=== PATIENT | female | born 1985 | race Caucasian/White ===

== ENCOUNTER 2018-03-30 17:23 | Inpatient (IN) ==
[2018-03-30] MEDS ORDERED: Vancomycin Inj 1 GM/200 ML PIGGYBACK IV.SIG ONE (18:11)
[2018-03-30] MEDS ORDERED: Morphine Inj 4 MG/ML Vial IV.PUSH ONE (18:13)
--- NOTE | 2018-03-30 18:47 | XR ---
EXAM DATE: 03/30/2018 6:11 PM EDT AGE/SEX: 33 years / Female INDICATIONS: Dog bite to left forearm. CLINICAL DATA: This is the patient's initial encounter. Patient reports that signs and symptoms have been present for 4 - 6 days and indicates a pain score of 5/10. MEDICAL/SURGICAL HISTORY: None. None. COMPARISON: No prior exams available for comparison. FINDINGS: Bony structures are intact and in normal alignment. Osseous density is normal. There appears to be a radiographic soft tissue defect along the ulnar aspect of the distal forearm. No radiopaque foreign b leatha. No radiopaque foreign bodies seen. CONCLUSION: 1. Soft tissue defect along the ulnar aspect of the forearm distally with no radiopaque foreign body . 2. Osseous structures are intact Electronically signed by: Moisés Anderson MD 03/30/2018 6:45 PM EDT
[2018-03-30 18:50] LABS: Baso % (Auto) 0.3 % (0.0-2.0); Eos % (Auto) 0.8 % (0.0-4.0); Hematocrit 32.2 % (35.0-46.0); Hemoglobin 10.4 gm/dL (11.6-15.3); Lymph # (Auto) 1.5 th/mm3 (1.0-4.8); Lymph % (Auto) 25.6 % (9.0-44.0); Mean Corpuscular HGB Conc 32.5 % (32.0-36.0); Mean Corpuscular Hemoglobin 27.7 pg (27.0-34.0); Mean Corpuscular Volume 85.4 fL (80.0-100.0); Mean Platelet Volume 8.6 fL (7.0-11.0); Mono # (Auto) 0.3 th/mm3 (0.0-0.9); Mono % (Auto) 5.8 % (0.0-8.0); Neut # (Auto) 3.9 th/mm3 (1.8-7.7); Neut % (Auto) 67.5 % (16.0-70.0); Platelet Count 179 th/mm3 (150-450); Red Blood Count 3.77 mil/mm3 (4.00-5.30); Red Cell Distribution Width 17.5 % (11.6-17.2); White Blood Count 5.7 th/mm3 (4.0-11.0)
[2018-03-30 18:58] LABS: Chloride 108 meq/L (98-107); Potassium 3.6 meq/L (3.5-5.1); Sodium 142 meq/L (136-145)
[2018-03-30 19:01] LABS: Albumin 3.4 g/dL (3.4-5.0); Anion Gap 7 meq/L (5-15); Blood Urea Nitrogen 10 mg/dL (7-18); Calcium 8.5 mg/dL (8.5-10.1); Carbon Dioxide 26.9 meq/L (21.0-32.0); Glucose,Random 100 mg/dL (74-106)
[2018-03-30 19:04] LABS: Alanine Aminotransferase 47 U/L (10-53); Aspartate Aminotransferase 36 U/L (15-37); Glomerular Filtration Rate 82 mL/min (>89)
[2018-03-30 19:06] LABS: Total Protein 7.2 g/dL (6.4-8.2)
[2018-03-30 19:07] LABS: Alkaline Phosphatase 86 U/L (45-117)
--- NOTE | 2018-03-30 19:37 | ED ---
HPI General Chief complaint: Animal Bite Stated complaint: Left arm lac Time Seen by Provider: 03/30/18 17:57 Source: patient Mode of arrival: ambulatory Limitations: no limitations History of Present Illness HPI narrative: Patient is a 33 year old female who comes in complaining of pain and swelling to her left arm from a dog bite. She says the bites occurred night and she went to an urgent care. She says they gave her Augmentin , which she has been taking. She had super glued the bites prior to going in, but has peeled them off since then. She says that the wound to the anterior side of her left forearm has been oozing pus and becoming more swollen. She is also noticed increasing redness to the inside of her arm. She denies fever or chills. She says she was given [place] at the urgent care, but this is not helped her pain. Severity is moderate. Related Data Home Medications Medication Instructions Recorded Confirmed Augmentin 03/30/18 Allergies Allergy/AdvReac Type Severity Reaction Status Date / Time acetaminophen AdvReac Severe Nausea/Vomi Verified 03/30/18 18:47 ting Review of Systems ROS: all other systems reviewed are negative Constitutional Denies chills and Denies fever(s) ENT Denies dizziness Cardiovascular Denies chest pain and Denies dyspnea Respiratory Denies dyspnea Gastrointestinal Denies nausea and Denies vomiting Musculoskeletal Denies deformity Integumentary/Breasts Reports wounds Neurologic Denies focal weakness and Denies numbness PMFSH Medical History Medical History History of ADHD (Acute) History of anemia (Acute) Surgical History Surgical History History of abdominal surgery (Acute) Social History Social History Substance History: No History of Abuse Second Hand Smoke Exposure: Yes Smoking Status: Current every day smoker Tobacco Type: Cigarettes How Often Do You Have a Drink Containing Alcohol: 4 or more times a week Recent Travel in [facility] within the Last 8 Weeks: No Recent Out of Country Travel within the Last 8 Weeks: No Immunization History Tetanus Immunization: <5 Years Tetanus Immunization Year if Known: 2018 Exam Narrative Exam Narrative: GENERAL: Awake and alert, in no acute distress. SKIN: Wounds to the left forearm. There is a 2cm open and drain wound to the anterior portion of the left forearm with erythema and warmth from the wrist to the elbow. HEAD: Atraumatic. Normocephalic. EYES: Pupils equal and round. No scleral icterus. No injection or drainage. ENT: Mucous membranes pink and moist. NECK: Trachea midline. No JVD. CARDIOVASCULAR: Regular rate and rhythm. No murmur appreciated. RESPIRATORY: No accessory muscle use. Clear to auscultation. Breath sounds equal bilaterally. GASTROINTESTINAL: Abdomen soft, non-tender, nondistended. MUSCULOSKELETAL: No obvious deformities. No clubbing. No cyanosis. No edema. NEUROLOGICAL: Awake and alert. No obvious cranial nerve deficits. Motor grossly within normal limits. Normal speech. PSYCHIATRIC: Appropriate mood and affect; insight and judgment normal. Course Initial Documented Vital Signs Temperature 98.6 F 03/30/18 17:42 Pulse Rate 74 03/30/18 17:42 Respiratory Rate 16 03/30/18 17:42 Blood Pressure 153/88 H 03/30/18 17:42 Pulse Oximetry 100 03/30/18 17:42 Last Documented Vital Signs Temperature 98.6 F 03/30/18 17:42 Pulse Rate 78 03/30/18 18:43 Respiratory Rate 16 03/30/18 18:43 Blood Pressure 136/84 03/30/18 18:43 Pulse Oximetry 100 03/30/18 18:43 Medical Decision Making [facility] Narrative Medical decision making narrative: Patient is a 33 year old female who comes in complaining of pain and swelling to her left forearm. Exam shows an open wound , draining pus with large area of surrounding erythema and warmth. IV established, labs sent. Labs show no acute abnormalities, but patient has been taking Augmentin. Given Vancomycin and Levaquin. Patient would benefit from observation stay to ensure she improves, as she has already failed outpatient therapy. Medical Screen Exam Complete: Yes Emergency Medical Condition: Yes Differential Diagnosis Differential Diagnosis: Cellulitis versus abscess versus foreign body Medical Records Medical records reviewed: Yes I reviewed the patient's medical records. Lab Data Result diagrams: 03/30/18 18:41 03/30/18 18:41 POC Results POC Urine Results Negative Lab Results 03/30/18 03/30/18 Range/Units 18:41 18:41 CBC w Diff Auto diff final WBC 5.7 (4.0-11.0) th/mm3 RBC 3.77 L (4.00-5.30) mil/mm3 Hgb 10.4 L (11.6-15.3) gm/dL Hct 32.2 L (35.0-46.0) % MCV 85.4 (80.0-100.0) fL MCH 27.7 (27.0-34.0) pg MCHC 32.5 (32.0-36.0) % RDW 17.5 H (11.6-17.2) % Plt Count 179 (150-450) th/mm3 MPV 8.6 (7.0-11.0) fL Neut % (Auto) 67.5 (16.0-70.0) % Lymph % (Auto) 25.6 (9.0-44.0) % [place] % (Auto) 5.8 (0.0-8.0) % Eos % (Auto) 0.8 (0.0-4.0) % Baso % (Auto) 0.3 (0.0-2.0) % Neut # (Auto) 3.9 (1.8-7.7) th/mm3 Lymph # (Auto) 1.5 (1.0-4.8) th/mm3 [place] # (Auto) 0.3 (0.0-0.9) th/mm3 Eos # (Auto) 0.0 (0.0-0.4) th/mm3 Baso # (Auto) 0.0 (0.0-0.2) th/mm3 WBC Differential . Differential Comment . Sodium 142 (136-145) meq/L Potassium 3.6 (3.5-5.1) meq/L Chloride 108 H (98-107) meq/L Carbon Dioxide 26.9 (21.0-32.0) meq/L Anion Gap 7 (5-15) meq/L BUN 10 (7-18) mg/dL Creatinine 0.81 (0.50-1.00) mg/dL Estimated GFR 82 L (>89) mL/min Random Glucose 100 (74-106) mg/dL Calcium 8.5 (8.5-10.1) mg/dL Total Bilirubin 0.2 (0.2-1.0) mg/dL AST 36 (15-37) U/L ALT 47 (10-53) U/L Alkaline Phosphatase 86 (45-117) U/L Total Protein 7.2 (6.4-8.2) g/dL Albumin 3.4 (3.4-5.0) g/dL Imaging Data Radiologist's impression: Forearm X-Ray 03/30/18 18:11 CONCLUSION: 1. Soft tissue defect along the ulnar aspect of the forearm distally with no radiopaque foreign body. 2. Osseous structures are intact Discharge Plan Discharge Disposition Patient Disposition: 30 Still Patient Discharge Condition Condition: Stable Discharge Details Diagnosis: Dog bite, Cellulitis Physicians Team ED Provider: Cherrie Okeefe Primary Care Provider: Primary Care HodaiRosangela Rxs /Orders / Referrals /Forms Prescriptions: No Action Augmentin RF: 0 Discharge Interventions Interventions: Vital Signs Last Done: 03/30/18 18:43 Status ED Status: With Doctor
[2018-03-30] MEDS ORDERED: Vancomycin Consult Pharmacy OTHER PRN (20:00)
[2018-03-30] MEDS ORDERED: Vancomycin Inj 1,000 MG in Sodium Chlor 0.9% Inj 250 ML IV.SIG ONE (20:00)
[2018-03-30] MEDS: Sod Chloride 0.9% Inj 1,000 ML IV.CONT SCH (21:23)
[2018-03-31 06:24] LABS: Baso % (Auto) 0.4 % (0.0-2.0); Eos # (Auto) 0.1 th/mm3 (0.0-0.4); Eos % (Auto) 1.7 % (0.0-4.0); Hematocrit 30.1 % (35.0-46.0); Hemoglobin 9.6 gm/dL (11.6-15.3); Lymph # (Auto) 1.4 th/mm3 (1.0-4.8); Lymph % (Auto) 29.6 % (9.0-44.0); Mean Corpuscular Hemoglobin 27.2 pg (27.0-34.0); Mean Platelet Volume 8.8 fL (7.0-11.0); Mono # (Auto) 0.5 th/mm3 (0.0-0.9); Mono % (Auto) 9.3 % (0.0-8.0); Neut # (Auto) 2.9 th/mm3 (1.8-7.7); Platelet Count 154 th/mm3 (150-450); Red Blood Count 3.54 mil/mm3 (4.00-5.30); Red Cell Distribution Width 17.3 % (11.6-17.2); White Blood Count 4.9 th/mm3 (4.0-11.0)
[2018-03-31] MEDS: Sod Chloride 0.9% Inj 1,000 ML IV.CONT SCH ×2 (06:25→17:28)
[2018-03-31 06:36] LABS: Potassium 3.9 meq/L (3.5-5.1)
[2018-03-31 06:43] LABS: Calcium 8.2 mg/dL (8.5-10.1); Carbon Dioxide 24.8 meq/L (21.0-32.0)
--- NOTE | 2018-03-31 08:08 | P.HPIM ---
History of Present Illness Primary Care Physician: No Primary Care Physician Chief Complaint: dog bite History of Present Illness: patient is a 33 y/o female with no significant past medical history other than anemia who presented to ER with left forearm infection. she says that she had a dog bite few days ago. she went to urgent care and was given Augmentin which she took with no significant improvement. she denies any fever or chills but has some pain to the left forearm. she denies any other complaints. Inpatient Certification: I certify that the inpatient services were ordered in accordance with Medicare regulations governing the order. This includes certification that hospital inpatient services are reasonable and necessary and in the case of services not specified as inpatient-only under 42 CFR 419.22(n), that they are appropriately provided as inpatient services in accordance to with the 2-midnight benchmark under 43 CFR 412.3(e) Estimated Total Length of Stay (Days): 2 Plans for Post Hospital Care: Home Review of Systems All other systems reviewed negative except as stated in HPI PMFSH - History History Provided By: Patient - Medical History Medical History: Medical History (Last Reviewed 03/31/18 @ 08:06 by Cherelle Ferrer MD) History of ADHD History of anemia - Surgical History Surgical History: Surgical History (Last Reviewed 03/31/18 @ 08:06 by Cherelle Ferrer MD) History of abdominal surgery - Family History Family History: Family History (Last Updated 03/31/18 @ 08:06 by Cherelle Ferrer MD) Other No pertinent family history - Tobacco History Second Hand Smoke Exposure: Yes Tobacco Use In Past 30 Days: Yes Smoking Status: Heavy tobacco smoker Tobacco Type: Cigarettes - Alcohol History How Often Do You Have a Drink Containing Alcohol: 4 or more times a week - Substance Use History Substance History: No History of Abuse - Travel History Recent Travel in the [place] Within the Last 8 Weeks: No Recent Travel Out of the Country Within the Last 8 Weeks: No - Immunization History Tetanus Immunization: <5 Years Tetanus Immunization Year if Known: 2018 Medications and Allergies Active Medications: Active Medications Sodium Chloride (Ns Inj) 1,000 mls @ 100 mls/hr IV.CONT .Q10H HUGO Last Admin: 03/31/18 06:25 Dose: 100 mls/hr Vancomycin HCl 1,250 mg/ (Sodium Chloride) 262.5 mls @ 250 mls/hr IV.SIG Q18H HUGO Piperacillin/Tazobactam/Dextrose (Zosyn 3.375 Gm Premix) 50 mls @ 100 mls/hr IV.SIG Q8H HUGO Miscellaneous Information ([facility] Ordered Lab Info) 0 each OTHER ONCE ONE Stop: 04/02/18 15:46 Ondansetron HCl (Zofran Inj) 4 mg IV.PUSH Q6H PRN PRN Reason: NAUSEA OR VOMITING Last Admin: 03/31/18 01:12 Dose: 4 mg Pharmacy Profile Note (Vancomycin Consult Pharmacy) 1 each OTHER UNSCH PRN PRN Reason: Pharmacy to dose Tramadol HCl (Ultram) 50 mg PO Q6H PRN PRN Reason: pain 1 to 10 Last Admin: 03/31/18 06:24 Dose: 50 mg Allergies Allergy/AdvReac Type Severity Reaction Status Date / Time acetaminophen AdvReac Severe Nausea/Vomi Verified 03/30/18 18:47 ting Home Medications Medication Instructions Recorded Confirmed Type Augmentin 03/30/18 History Exam Vital signs: Vital Signs 03/30/18 17:42 03/30/18 18:43 03/30/18 20:00 Temperature 98.6 F 96.5 F L Pulse Rate 74 78 68 Respiratory Rate 16 16 18 Blood Pressure 153/88 H 136/84 119/100 H Pulse Oximetry 100 100 99 03/30/18 20:30 03/31/18 00:00 Temperature 96.4 F L Pulse Rate 74 56 L Respiratory Rate 16 18 Blood Pressure 130/88 129/85 Pulse Oximetry 99 97 Intake & Output 03/30/18 03/31/18 03/31/18 18:59 06:59 18:59 Intake Total 1500 / 1500 Output Total 250 / 250 Balance 1250 / 1250 Weight 59.3 kg 62.1 kg Intake: IV 1300 / 1300 NS Inj 1,000 ML @ 100 mls/hr IV 900 / 900 .CONT .Q10H HUGO Rx#:[id number] Levaquin 750 mg Premix Inj 150 150 / 150 ML @ 100 mls/hr IV.SIG ONCE ONE Rx#:[id number] Vancomycin Inj 1,000 MG In NS 250 / 250 Inj 250 ML @ 250 mls/hr IV.SIG ONCE ONE Rx#:[id number] Oral 200 / 200 Output: Urine 250 / 250 Other: Weight On Admission 61.3 kg - Constitutional no acute distress - Routine HEENT Exam Eye: Present: PERRL - Routine Neck Exam Present: supple - Routine Respiratory Exam Present: CTA bilaterally - Routine Cardiovascular Exam Present: RRR - Routine Abdominal Exam Present: soft - Routine Extremities Exam Comments: mild swelling of the left forearm with mild tenderness and erythema. - Routine Skin Exam Present: erythema (mild erythema over the left forearm.) Results - Labs CBC & Chem 7: 03/31/18 06:00 03/31/18 06:00 Labs: Short CBC 03/30/18 03/31/18 Range/Units 18:41 06:00 WBC 5.7 4.9 (4.0-11.0) th/mm3 Hgb 10.4 L 9.6 L (11.6-15.3) gm/dL Hct 32.2 L 30.1 L (35.0-46.0) % Plt Count 179 154 (150-450) th/mm3 BMP 03/30/18 03/31/18 18:41 06:00 Sodium 142 143 Potassium 3.6 3.9 Chloride 108 H 112 H Carbon Dioxide 26.9 24.8 BUN 10 9 Creatinine 0.81 0.77 Calcium 8.5 8.2 L Liver Function 03/30/18 Range/Units 18:41 Total Bilirubin 0.2 (0.2-1.0) mg/dL AST 36 (15-37) U/L ALT 47 (10-53) U/L Alkaline Phosphatase 86 (45-117) U/L Albumin 3.4 (3.4-5.0) g/dL - Imaging Impressions Forearm X-Ray 03/30/18 18:11 CONCLUSION: 1. Soft tissue defect along the ulnar aspect of the forearm distally with no radiopaque foreign body. 2. Osseous structures are intact Caprini VTE Risk Assessment Caprini VTE Risk Assessment: No/Low Risk (score <= 1) Caprini Risk Assessment Model: Point Value = 1 Point Value = 2 Point Value = 3 Point Value = 5 Age 41-60 Minor surgery BMI > 25 kg/m2 Swollen legs Varicose veins or History of unexplained or recurrent spontaneous Oral contraceptives or hormone replacement Sepsis (< 1 month) Serious lung disease, including pneumonia (< 1 month) Abnormal pulmonary function Acute myocardial infarction Congestive heart failure (< 1 month) History of inflammatory bowel disease Medical patient at bed rest Age 61-74 Arthroscopic surgery Major open surgery (> 45 min) Laparoscopic surgery (> 45 min) Malignancy Confined to bed (> 72 hours) Immobilizing plaster cast Central venous access Age >= 75 History of VTE Family history of VTE Factor V Leiden Prothrombin [id number] Lupus anticoagulant Anticardiolipin antibodies Elevated serum homocysteine Heparin-induced thrombocytopenia Other congenital or acquired thrombophilia Stroke (< 1 month) Elective arthroplasty Hip, pelvis, or leg fracture Acute spinal cord injury (< 1 month) Prophylaxis Regimen: Total Risk Factor Score Risk Level Prophylaxis Regimen 0-1 Low Early ambulation 2 Moderate Order ONE of the following: *Sequential Compression Device (SCD) *Heparin 5000 units SQ BID 3-4 Higher Order ONE of the following medications: *Heparin 5000 units SQ TID *Enoxaparin/Lovenox 40 mg SQ daily (WT < 150 kg, CrCl > 30 mL/min) *Enoxaparin/Lovenox 30 mg SQ daily (WT < 150 kg, CrCl > 10-29 mL/min) *Enoxaparin/Lovenox 30 mg SQ BID (WT < 150 kg, CrCl > 30 mL/min) AND/OR *Sequential Compression Device (SCD) 5 or more Highest Order ONE of the following medications: *Heparin 5000 units SQ TID (Preferred with Epidurals) *Enoxaparin/Lovenox 40 mg SQ daily (WT < 150 kg, CrCl > 30 mL/min) *Enoxaparin/Lovenox 30 mg SQ daily (WT < 150 kg, CrCl > 10-29 mL/min) *Enoxaparin/Lovenox 30 mg SQ BID (WT < 150 kg, CrCl > 30 mL/min) AND *Sequential Compression Device (SCD) Assessment and Plan - Plan A/P - dog bite cellulitis of the left forearm-failed outpatient therapy- seems to be improving continue with broad-spectrum IV antibiotics till cultures resulted- continue with pain control. Discussed Condition With: the patient. Discharge Planning: possible dc home tomorrow if continues to improve-pending cultures. H&P: Quality - VTE Deep Vein Thrombosis/Pulmonary Embolism Present on Admission: No
[2018-03-31] MEDS: Piperacil/Tazo 3.375 GM Premix 50 ML IV.SIG SCH ×2 (09:00→17:35)
[2018-03-31] MEDS: Vancomycin Inj 1,250 MG in Sodium Chlor 0.9% Inj 250 ML IV.SIG SCH (09:44)
[2018-03-31] MEDS ORDERED: Sodium Chloride 0.9% 2 ML Flush PRN IV.FLUSH (13:14)
[2018-03-31] MEDS: Ketorolac Inj 30 MG/ML (IVP) Vial IV.PUSH PRN ×2 (15:08→22:11)
[2018-03-31] MEDS ORDERED: levoFLOXacin 750 MG Tablet PO SCH (18:00)
[2018-03-31] MEDS: Sodium Chloride 0.9% 2 ML Flush BID IV.FLUSH SCH (20:12)
[2018-04-01] MEDS: Piperacil/Tazo 3.375 GM Premix 50 ML IV.SIG SCH ×2 (00:06→08:22)
[2018-04-01] MEDS: Sod Chloride 0.9% Inj 1,000 ML IV.CONT SCH ×3 (03:38→13:36)
[2018-04-01] MEDS: Vancomycin Inj 1,250 MG in Sodium Chlor 0.9% Inj 250 ML IV.SIG SCH (04:27)
[2018-04-01] MEDS: Ketorolac Inj 30 MG/ML (IVP) Vial IV.PUSH PRN ×2 (04:27→12:54)
[2018-04-01 08:49] VITALS: RESP 16
--- NOTE | 2018-04-01 10:39 | P.PNIM ---
Subjective Interval history: f/u; left hand infection in no acute distress. pain is better along with erythema over the left forearm. no fever. no new complaints. Physical Exam Vital signs: Vital Signs 03/31/18 11:42 03/31/18 13:18 03/31/18 13:58 Temperature 97.5 F L Pulse Rate 55 L Respiratory Rate 18 18 Blood Pressure 129/83 Pulse Oximetry 98 03/31/18 15:38 03/31/18 16:00 03/31/18 20:00 Temperature 97.0 F L 97.5 F L Pulse Rate 50 L 55 L Respiratory Rate 18 16 16 Blood Pressure 129/99 H 124/69 Pulse Oximetry 100 99 04/01/18 00:00 04/01/18 07:16 04/01/18 08:00 Temperature 97.1 F L 97.4 F L Pulse Rate 56 L 54 L Respiratory Rate 16 18 16 Blood Pressure 118/67 146/62 H Pulse Oximetry 98 96 Intake & Output 03/31/18 04/01/18 04/01/18 18:59 06:59 18:59 Intake Total 2142.5 / 2142.5 4032.5 / 4032.5 50 / 50 Balance 2142.5 / 2142.5 4032.5 / 4032.5 50 / 50 Weight 62.1 kg Intake: IV 2142.5 / 2142.5 1312.5 / 1312.5 50 / 50 NS Inj 1,000 ML @ 100 mls/hr IV 1780 / 1780 1000 / 1000 .CONT .Q10H HUGO Rx#:[id number] Zosyn 3.375 GM Premix 50 ML @ 100 / 100 50 / 50 50 / 50 100 mls/hr IV.SIG Q8H HUGO Rx#: [id number] Vancomycin Inj 1,250 MG In NS 262.5 / 262.5 262.5 / 262.5 Inj 250 ML @ 250 mls/hr IV.SIG Q18H HUGO Rx#:[id number] Oral 2720 / 2720 Other: # Voids 3 Date of Last Bowel Movement 03/30/18 03/30/18 03/31/18 - Constitutional no acute distress - Routine Respiratory Exam Present: CTA bilaterally - Routine Cardiovascular Exam Present: RRR - Routine Abdominal Exam Present: soft - Routine Extremities Exam Comments: no pedal edema. wound on the left wrist with no drainage. - Routine Skin Exam Present: erythema (of the left wrist has improved.) - Routine Neurological Exam Present: alert, oriented X3 Results - Labs CBC & Chem 7: 03/31/18 06:00 03/31/18 06:00 Microbiology 03/30/18 21:15 Abscess - Arm Gram Stain - Final 03/30/18 21:15 Abscess - Arm Wound Culture - Preliminary No growth. Assessment and Plan - Plan A/P - dog bite cellulitis of the left forearm-failed outpatient therapy- has much improved. switch to oral antibiotics- wound care consulted. continue with pain control. Discharge Planning: dc home today with oral antibiotics and f/u as outpatient with pcp- after seen by wound care. see med list. d/w the patient. [facility]illo was consulted prior to discharge.
[2018-04-01] MEDS: Sodium Chloride 0.9% 2 ML Flush BID IV.FLUSH SCH (11:08)
[2018-04-01 13:14] VITALS: BP 160/95; PULSE 68; TEMP 97.2; O2SAT 92
[2018-04-02] MEDS ORDERED: [UNRECOGNIZED DRUG - REMARK] OTHER ONE (15:45)
== END 2018-04-01 14:11 | disposition home or self-care (01) ==
LOC: PHED 17:23 → PHEDA 19:43 → PH3 20:33
PROVIDERS: ADMIT Internal Medicine; ATTEND Internal Medicine